=== PATIENT | female | born 1930 | race Caucasian/White ===

== ENCOUNTER → 2016-04-20 | Day surgery (SDC) | payer MEDICARE, OTHER ==
[~2016-04-20] MED LIST: ACETAMINOPHEN PO; ALPRAZOLAM; ALPRAZOLAM0.5 MG PO; AMILORIDE PO; AMITRIPTYLINE H50 MG PO; AMITRYPTYLINE; AMLODIPINE BES2.5 MG PO; AMLODIPINE BESYL5 MG PO; ASPIRIN; ASPIRIN81 M2 PO; ATENOLOL; ATENOLOL50 MG PO; AZOR 5-40 MG1 UDTAB PO; BENTYL20 M1 PO; BENTYL20 MG PO; CATAPRES-TTS-20.2 M1 PO; CLONIDINE; CLONIDINE HCL0.1 MG PO; COREG12.5 MG PO; COREG6.25 M1 PO; COZAAR PO; COZAAR25 MG PO; DIOVAN HCT 160/1 TAB PO; EPIPEN0.3 MG/0.1 IM; FENTANYL1 EAC1 TD; FLOMAX0.4 M1 PO; FOLIC ACID1 MG PO; FUROSEMIDE40 MG; HYDROCHLOROTH12.5 M1 PO; KEFLEX500 M2 PO; KEFLEX500 MG PO; KEPPRA1000 MG PO; KLOR-CON PO; LEVOTHYROXINE100 MC1 PO; LIDODERM30 EA TOP; LOSARTAN POTAS100 MG PO; MICONAZOLE PV; MOBIC15 MG PO; MORPHINE IR PO; MORPHINE SULFAT15 MG PO; MORPHINE SULFAT30 M3 PO; MOTION RELIEF25 MG PO; MS CONTIN15 M1 PO; MS CONTIN30 M1 PO; NAMENDA5 MG PO; NYSTATIN-TRIAMC15 G1 TOP; PATIENT'S PHARMACY; PRILOSEC20 MG; PROTONIX PO; RAZADYNE4 M1 PO; SPIRONOLACTONE50 MG PO; SYNTHROID; SYNTHROID0.1 MG PO; SYNTHROID112 MCG PO; VICODIN 5/500 T1 TAB PO; ZOFRAN ODT4 MG/UDTAB PO; ZOLOFT50 MG PO; [UNRECOGNIZED DRUG - OTHER] PV
--- NOTE | ~2016-04-20 | OR ---
Unit #: [id number] #: [id number] Patient: ARLEEN MONTANEZ [id number] [address] [place], [place] [address] [id number] O MR#: [id number] NAME: ARLEEN MONTANEZ ROOM: Date of Procedure: 04/20/2016 Admission Date: 04/20/2016 Surgeon: Aden Liang M.D. : 1930 Attending Physician: Aden Liang M.D. Primary Care Physician: Juan King M.D. OPERATIVE REPORT PREOPERATIVE DIAGNOSES Neck pain, cervical radiculopathy, degenerative cervical disk disease with myelopathy. POSTOPERATIVE DIAGNOSES Neck pain, cervical radiculopathy, degenerative cervical disk disease with myelopathy. PROCEDURE PERFORMED Cervical epidural steroid injection with intravenous sedation and fluoroscopic guidance for needle localization. INDICATIONS FOR PROCEDURE The patient is an 85-year-old female with neck periscapular pain. She failed to settle with medical management alone. Workup did demonstrate significant facet disease. A trial was given of C5-6, C6-7, C3-4, C4-5 facet injections. She got some mild improvement with this, better with local, and normally maintained with the steroid. Plan is to trial of epidural steroid injection at this point as diagnostic and therapeutic modality to see if this works better for her symptom complex. DESCRIPTION OF PROCEDURE The patient was placed in a seated position. Standard monitors were applied. 1 mg Versed was given for sedation and anxiolysis, which was adequate. Vital signs remained stable. Sterile prep and drape then of the cervical area was performed. The skin then at the C6-7 level was localized with 1% lidocaine. An 18-gauge Buzzienttead needle was then advanced via hanging drop technique and fluoroscopic guidance in toward the epidural space. After confirming proper positioning with fluoroscopy and radiographic contrast, 80 mg Depo-Medrol and 2 mL of 0.25% bupivacaine were deposited. The patient tolerated the procedure otherwise well and was discharged to the recovery room in stable condition. Dictated by... Shannan Gordillo/matt TD: 04/21/2016 00:18 JOB #: [id number] Unit #: [id number] #: [id number] Patient: ARLEEN MONTANEZ OPERATIVE REPORT X Aden Liang MD X PROCEDURE OPERATIVE NOTE
== END | disposition home or self-care (01) ==
LOC: CCSC 10:15
DX: M50.00 Cervical disc disorder with myelopathy, unspecified cervical region (principal); M50.10 Cervical disc disorder with radiculopathy, unspecified cervical region; M47.22 Other spondylosis with radiculopathy, cervical region; I25.2 Old myocardial infarction; I25.10 Atherosclerotic heart disease of native coronary artery without angina pectoris; M19.90 Unspecified osteoarthritis, unspecified site
CPT/HCPCS: J1040; J2250

== ENCOUNTER → 2016-09-14 | Day surgery (SDC) | payer MEDICARE, OTHER ==
--- NOTE | ~2016-09-14 | OR ---
Unit #: [id number] #: [id number] Patient: ARLEEN MONTANEZ [id number] [address] [address] [id number] O MR#: [id number] NAME: ARLEEN MONTANEZ ROOM: Date of Procedure: 09/14/2016 Admission Date: 09/14/2016 Surgeon: Aden Liang M.D. : 1930 Attending Physician: Aden Liang M.D. Primary Care Physician: Danica Carrero M.D. OPERATIVE REPORT PREOPERATIVE DIAGNOSES Degenerative cervical disk disease, neck pain, cervical radiculopathy. POSTOPERATIVE DIAGNOSES Degenerative cervical disk disease, neck pain, cervical radiculopathy. PROCEDURE PERFORMED Cervical epidural steroid injection with intravenous sedation and fluoroscopic guidance for needle localization. INDICATIONS FOR PROCEDURE The patient is an 85-year-old female with neck, periscapular, upper extremity pain associated with known degenerative cervical disk and spine disease. Plan is for trial of epidural steroid injection. DESCRIPTION OF PROCEDURE The patient was placed in a seated position. Standard monitors were applied. 1 mg Versed was given for sedation and anxiolysis, which was adequate. Vital signs remained stable. Sterile prep and drape then of cervical area was performed. The skin then at the C5-C6 level was localized with 1% lidocaine. An 18-gauge Hustead needle was then advanced via hanging drop technique and fluoroscopic guidance in toward the epidural space. After confirming proper positioning with fluoroscopy and radiographic contrast, 80 mg of Depo-Medrol and 2 mL of 0.25% bupivacaine were deposited. The patient tolerated the procedure otherwise well and was discharged to the recovery room in stable condition. Dictated by... Shannan Gordillo/matt TD: 09/14/2016 13:19 JOB #: [id number] Unit #: [id number] #: [id number] Patient: ARLEEN MONTANEZ OPERATIVE REPORT Page 1 of 1 X Aden Liang MD X PROCEDURE OPERATIVE NOTE
== END | disposition home or self-care (01) ==
LOC: CCSC 10:37
DX: M50.10 Cervical disc disorder with radiculopathy, unspecified cervical region (principal); I25.10 Atherosclerotic heart disease of native coronary artery without angina pectoris; I25.2 Old myocardial infarction; M19.90 Unspecified osteoarthritis, unspecified site; F41.9 Anxiety disorder, unspecified; F32.9 Major depressive disorder, single episode, unspecified
CPT/HCPCS: J1040; J2250

== ENCOUNTER → 2016-10-12 | Outpatient (CLI) | payer MEDICARE, OTHER | END | disposition home or self-care (01) | LOC: CECH 13:01 | DX: I25.10 Atherosclerotic heart disease of native coronary artery without angina pectoris (principal); I51.7 Cardiomegaly; I36.1 Nonrheumatic tricuspid (valve) insufficiency | CPT/HCPCS: 93306 ==

== ENCOUNTER 2016-11-01 11:06 | Inpatient (IN) | payer MEDICARE, OTHER ==
[~2016-11-01] VITALS: Ht 154.9 cm; Wt 72.8 kg
--- NOTE | ~2016-11-01 | CR72 ---
[facility] A Service of [facility] RADIOLOGY TEXT RESULTS PATIENT: ARLEEN MONTANEZ LOCATION: [facility] : 31 UNIT #: [id number] AGE: [address]: Lindsay Carcamo MD SEX: F ORDER DR: [id number] [facility] [address] [place], [place] [address] [id number] I MR#: [id number] Acc #: [id number] NAME: ARLEEN MONTANEZ : 1930 SEX: F STUDY DATE/TIME: 11/01/2016 13:10 UNIT: [address] ROOM: [facility] STUDY DESCRIPTION: CR Chest Single View Portable Attending Physician: Lindsay Carcamo M.D. Ordering Physician: Nica Medrano M.D. Primary Care Physician: Danica Carrero M.D. MEDICAL IMAGING REPORT This report is preliminary unless electronic signature is present EXAM Portable chest x-ray, 11/01/2016. HISTORY Dyspnea. TECHNIQUE AP radiograph of the chest is presented. COMPARISON STUDIES 03/03/2015 FINDINGS Status post median sternotomy and CABG. Mild cardiac enlargement stable. Mild elevation, left hemidiaphragm stable. Lungs well inflated. There is mild vascular prominence suggesting some degree of underlying vascular congestion. Underlying chronic interstitial changes most pronounced at the lung bases. Superimposed increase in linear interstitial densities in the mid to lower lung zones bilaterally. Given some evidence of pulmonary vascular congestion, I would favor the interstitial changes reflect mild interstitial edema or interstitial pneumonitis superimposed on the more chronic changes. There is no dense airspace disease, pleural effusion or pneumothorax. No suspicious nodule. Dictated by... Chepe Collado M.D. THIS IS AN ELECTRONICALLY VERIFIED REPORT Chepe Collado M.D. at 11/02/2016 7:40 PM TIKIK/shamika [facility] A Service of [facility] RADIOLOGY TEXT RESULTS PATIENT: ARLEEN MONTANEZ LOCATION: [facility] : 31 UNIT #: [id number] AGE: [address]: Lindsay Carcamo MD SEX: F ORDER DR: TD: 11/01/2016 23:19 JOB #: [id number] MEDICAL IMAGING REPORT Page 1 of 1 COPY
--- NOTE | ~2016-11-01 | HP ---
Unit #: [id number] #: [id number] Patient: ARLEEN MONTANEZ [id number] [address] [place], [place] [address] [id number] E MR#: [id number] NAME: ARLEEN MONTANEZ ROOM: Age: 85 Sex: F Admission Date: 11/01/2016 : 1930 Attending Physician: Nica Medrano M.D. Primary Care Physician: Danica Carrero M.D. HISTORY AND PHYSICAL REASON FOR ADMISSION Acute hypoxic respiratory failure, heart failure exacerbation, hypertensive urgency. HISTORY OF PRESENT ILLNESS Patient is a pleasant 85-year-old female, underlying history of moderate to severe dementia, depression, anxiety, hypothyroidism, chronic pain syndrome, who presented to the ER with complaints of increased dyspnea over the past several days marked with exertion, mild chest discomfort. She also stated that she had had her blood pressure checked while at home, was noted to be mildly elevated and subsequently presented to the hospital for further evaluation. While here her initial blood pressure was noted to be 212/80 and thus she is being admitted for the same. On initial EKG it does show normal sinus, no acute process was noted. Initial chest x-ray, although official report not available to me, does show stable cardiac enlargement and vascular congestion and/or edema; however, no acute infiltrate which was noted. Initial laboratory studies were also performed in the emergency room which did show a BNP of 196. Cardiac enzyme sets x2 have been unremarkable and negative. A UA was performed and normal as well. BMP showed a sodium of 132, LFTs normal, creatinine 0.6 and normal. PAST MEDICAL HISTORY 1. Hypothyroidism. 2. Dementia. 3. Chronic back pain. 4. Hyperlipidemia. 5. Peripheral vascular disease. 6. History of MGUS. 7. Depression. 8. Anxiety. 9. Lymphedema. 10. Chronic hyponatremia. 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 12. Diastolic dysfunction history. 13. Prior history of myocardial infarction. PAST SURGICAL HISTORY 1. Carotid endarterectomy. 2. Cataract. 3. Hysterectomy. Unit #: [id number] #: [id number] Patient: ARLEEN MONTANEZ 4. EGD/colonoscopy history. 5. CABG x3. SOCIAL HISTORY Resides at home, no alcohol, no tobacco, no illicit drug use. FAMILY HISTORY Reviewed and noncontributory/nonpertinent. ALLERGIES Although numerous are listed, two primary allergies are only sulfa and codeine. The remaining of her medications, per patient, do not work. REVIEW OF SYSTEMS Please see HPI. 12 point otherwise negative except for those positive noted in the HPI. Patient herself is a very poor historian. PHYSICAL EXAMINATION VITAL SIGNS: Temperature 97.8, pulse 77, respiratory rate 18, blood pressure 212/80 on admission, O2 sats low 90s on room air. GENERAL: Patient is a female in no apparent distress. She is alert. She is not oriented to time, place or person. HEAD EXAM: Atraumatic/normocephalic. NECK EXAM: Supple. Trachea midline. CVS: S1, S2 are audible. No murmur heard. RESPIRATORY: Prolonged expiration is noted. Some scattered rhonchi are noted. GI/ABDOMEN: Nontender, nondistended. LOWER EXTREMITIES: Have no evidence of any lower extremity edema. NEUROLOGICAL EXAM: Patient is A and O x1. She knows herself. She appears to be slightly confused but is easily redirectable. She is cooperative and mood and affect do appear to be normal. DIAGNOSTIC STUDIES LABORATORY: Initial laboratory studies please see above. INITIAL ASSESSMENT 1. Accelerated hypertension. 2. Mild heart failure exacerbation, likely diastolic dysfunction. 3. Acute hypoxic respiratory failure, likely multifactorial secondary to underlying heart failure exacerbation. 4. Dementia. 5. Hypothyroidism. 6. History of syndrome of inappropriate antidiuretic hormone 7. Hypertension. 8. Hyperlipidemia. 9. Depression. 10. Anxiety. 11. Monoclonal gammopathy of undetermined significance. PLAN 1. Admission telemetry floor. 2. Cardiac consult. 3. 2D echocardiogram. 4. Routine laboratory studies. 5. Blood cultures will be ascertained. 6. Blood pressure management will be initiated. 7. Home medications will be reviewed. Unit #: [id number] #: [id number] Patient: ARLEEN MONTANEZ 8. Currently med rec is pending. 9. PT/OT evaluation prior to discharge. Plans have been reviewed with patient. She desires per previous chart review to be a DNR. She will discuss amongst family if she wishes to continue current status. Dictated by Shannan Fox/ludin TD: 11/01/2016 18:08 JOB #: [id number] HISTORY AND PHYSICAL Page 1 of 1 X Lindsay Carcamo MD HISTORY AND PHYSICAL
--- NOTE | ~2016-11-01 | EKG ---
PATIENT: ARLEEN MONTANEZ UNIT #: [id number] Ventricular Rate: 79 BPM Atrial Rate: 79 BPM P-R Interval: 138 ms QRS Duration: 82 ms Q-T Interval: 410 ms QTC Calculation(Bezet): 470 ms P [place]: 52 degrees Calculated R [place]: 21 degrees Calculated T [place]: 31 degrees Diagnosis Line: Normal sinus rhythm Diagnosis Line: Possible Left atrial enlargement Diagnosis Line: Nonspecific T wave abnormality Diagnosis Line: Prolonged QT Diagnosis Line: Abnormal ECG Diagnosis Line: When compared with ECG of 23-NOV-2014 06:49, Diagnosis Line: No significant change was found Diagnosis Line: Confirmed by GEETHA FUNEZ MD ([id number]) on Diagnosis Line: 11/03/2016 10:50:16 AM INTERPRETING MD: ARMIN LOGAN
--- NOTE | ~2016-11-01 | EKG ---
PATIENT: ARLEEN MONTANEZ UNIT #: [id number] Ventricular Rate: 77 BPM Atrial Rate: 77 BPM P-R Interval: 148 ms QRS Duration: 84 ms Q-T Interval: 408 ms QTC Calculation(Bezet): 461 ms P [place]: 61 degrees Calculated R [place]: 42 degrees Calculated T [place]: 16 degrees Diagnosis Line: Normal sinus rhythm Diagnosis Line: Nonspecific T wave abnormality Diagnosis Line: Borderline ECG Diagnosis Line: When compared with ECG of 01-NOV-2016 12:56, Diagnosis Line: (unconfirmed) Diagnosis Line: No significant change was found Diagnosis Line: Confirmed by BRIAN WILSON MD ([id number]) on 11/08/2016 Diagnosis Line: 7:28:14 AM INTERPRETING MD: KATIE LOGAN
--- NOTE | ~2016-11-01 | DS ---
Unit #: [id number] #: [id number] Patient: ARLEEN MONTANEZ [id number] [address] [place], [place] [address] [id number] I MR#: [id number] NAME: ARLEEN MONTANEZ ROOM: 311 Age: 85 Sex: F Admission Date: 11/01/2016 : 1930 Discharge Date: 11/02/2016 Attending Physician: Lindsay Carcamo M.D. Primary Care Physician: Danica Carrero M.D. DISCHARGE SUMMARY Date of pending discharge, 11/12/2016. REASON FOR ADMISSION Accelerated hypertension and chest pain. HISTORY OF PRESENT ILLNESS/HOSPITAL COURSE Please refer to H and P for complete details. Consultation was placed to Dr. Overton and associates. The patient's blood pressure gradually started to improve. Cozaar dosage was increased from 25 mg daily to p.o. b.i.d. She was given additional hydralazine IV as her current systolic is currently between 160 to 170. She will be given her routine medications. Once her systolic blood pressure is less than 150, the patient will be discharged home. She was instructed to follow up with Dr. Samantha Overton on December 20 at 12:45 p.m. She will also follow up with primary care physician in approximately 7 to 10 days. At the present time, she currently denies any symptoms of chest pain. She has been removed from O2 via nasal cannula and her current O2 saturations on room air are stable. FINAL DISCHARGE DIAGNOSES 1. Accelerated hypertension. 2. Acute hypoxic respiratory failure likely secondary to anxiety. 3. Chest pain, acute coronary syndrome ruled out. 4. Chronic pain syndrome. 5. Hypertension history. 6. Hypothyroidism. 7. Generalized anxiety disorder. DISCHARGE MEDICATIONS Synthroid 112 mcg p.o. daily, Klor-Con 20 mg p.o. daily, MS Contin 60 mg p.o. q.a.m. and 30 mg p.o. at bedtime, MS-IR 15 mg p.o. b.i.d., aspirin 81 mg daily, Cozaar 25 mg p.o. b.i.d., Lasix 40 mg p.o. q.a.m., Lasix 20 mg p.o. every afternoon, Coreg 6.25 mg p.o. b.i.d., Zoloft 50 mg p.o. daily, and Tylenol 650 mg p.o. q.6h p.r.n. DISCHARGE CONDITION Stable. DISCHARGE DISPOSITION Home. FOLLOWUP Follow up with PCP in 7 to 10 days. Unit #: [id number] #: [id number] Patient: ARLEEN MONTANEZ Dictated by... Shannan Fox/matt TD: 11/06/2016 06:42 JOB #: [id number] DISCHARGE SUMMARY Page 1 of 1 X Lindsay Carcamo MD X DISCHARGE SUMMARY
--- NOTE | ~2016-11-01 | CO ---
Unit #: [id number] #: [id number] Patient: ARLEEN PRAJAPATI [id number] [address] [place], [place] [address] [id number] I MR#: [id number] NAME: ARLEEN PRAJAPATI ROOM: 311 Age: 85 Sex: F Admission Date: 11/01/2016 : 1930 Attending Physician: Lindsay Carcamo M.D. Primary Care Physician: Danica Carrero M.D. Consultation Date: 11/02/2016 CONSULTATION REPORT PRIMARY CARE DOCTOR Dr. Danica Carrero. REASON FOR CONSULTATION Poorly controlled blood pressure and dyspnea. HISTORY OF PRESENT ILLNESS This is an 85-year-old white female, who has known history of coronary artery disease, had a coronary bypass graft back in 2014; has chronic lymphedema; hypertension; hyperlipidemia; carotid artery disease, had bilateral carotid endarterectomy; hypothyroidism; chronic back pain. She came to the emergency room, and was sent by Dr. Carrero with elevated blood pressure and shortness of breath. According to the patient, she had not felt well for three or four days prior to going to see Dr. Carrero. She says she had been feeling just tired and weak and a lot more short of breath with exertion. She said she took her blood pressure at home in the last 2 or 3 days and her blood pressure was a little higher than usual. She states she has been compliant with her medication and she does not think she drinks too much fluids; however, she was saying she was overdoing on her salt intake. The patient says she has been having some substernal chest tightness, periodically, and it only lasts a few seconds. She said it is mostly when she is up doing something or when her blood pressure is high. She denies any radiation of the discomfort up into her neck, bilateral jaws, shoulders, arms, or elbow. She denies any palpitation. She does say they have been working her up for some chronic dizziness. She has had several testing done on that problem including some type of inner ear test, which was negative. They were still not sure of that cause. The patient denies having any fever or chills. She does have a dry occasional cough, which is not new. In the emergency room, the patient's blood pressure was 212/80, heart rate 77, respirations 18, temperature 97.8, and O2 saturations 92% on room air. Initial labs, her creatinine was 0.7, potassium 3.9 with a sodium 134, and magnesium 2.1. BNP 196. Initial cardiac enzymes are negative. WBC is 12.6 with hemoglobin of 13. Her EKG showed normal sinus rhythm, nothing acute. The patient was given sublingual nitroglycerin, and given an aspirin 325, also given a dose of IV Lopressor 5 mg, and a dose of IV hydralazine. The patient's chest x-ray did show some mild vascular congestion. PAST MEDICAL HISTORY 1. Hypertension. Unit #: [id number] #: [id number] Patient: ARLEEN PRAJAPATI 2. Hyperlipidemia. 3. Bilateral carotid endarterectomies and still has some blockages, she follows Dr. Almeida. 4. History of subclavian stenosis. 5. Chronic back pain and cervical disk disease, she follows with Pain Management, Dr. Liang, and has epidural steroid injections. 6. Hypothyroidism. 7. Depression and anxiety. 8. Chronic hyponatremia, probable SIADH. 9. History of chronic diastolic congestive heart failure. 10. History of coronary artery bypass graft in 03/2014. 11. Chronic lymphedema. 12. History of monoclonal gammopathy, undetermined significance. 13. A 2D echo from 02/2014 shows LVEF of 50% to 55% with trace mitral regurgitation, trace tricuspid regurgitation with impaired LV relaxation. 14. Nonsmoker. PAST SURGICAL HISTORY 1. Bilateral carotid endarterectomies. 2. Coronary artery bypass graft in 2014. 3. Hysterectomy. 4. Cholecystectomy. 5. Tonsillectomy. 6. EGD and colonoscopy, which showed nothing significant. HOME MEDICATIONS 1. Mobic 15 mg p.o. daily. 2. Zoloft 50 mg p.o. daily. 3. Klor-Con 20 mEq p.o. daily. 4. Aspirin 81 mg daily. 5. Furosemide 40 mg in the morning and 20 mg at noon. 6. Carvedilol 6.25 mg one tablet p.o. twice daily. 7. Synthroid 112 mcg p.o. daily. 8. Cozaar 25 mg p.o. daily. 9. Morphine 15 mg p.o. twice daily. 10. MS Contin 30 mg p.o. twice daily. ALLERGIES 1. Sulfonamides. 2. Codeine. SOCIAL HISTORY The patient lives with her spouse. The patient has to use a cane and walker and going any long distances has to use a wheelchair. Quit smoking back in 1968 and only smoked for a couple of years. No alcohol, tobacco, or other listed drug abuse. FAMILY HISTORY She was raised by her grandparents. She is not sure of her parents or siblings' history. REVIEW OF SYSTEMS See details in HPI. PHYSICAL EXAMINATION GENERAL: Ms. Prajapati is an 85-year-old white female, in no acute respiratory distress. She is awake, alert, and oriented. VITAL SIGNS: Blood pressure has came down as low as 137/58, now 151/57; Unit #: [id number] #: [id number] Patient: ARLEEN PRAJAPATI heart rate 78; respirations 18; temperature 98.2; and O2 saturations 96% on room air. NECK: Trachea midline. No thyromegaly or lymphadenopathy. Normal carotid upstrokes. No jugular venous distention. HEART: S1 and S2. Regular rate and rhythm. No clicks, murmurs, or rubs. LUNGS: Diminished, otherwise clear. ABDOMEN: Soft and nontender. Positive bowel sounds present. EXTREMITIES: Pedal pulses are weak, but palpable. No pedal edema. DIAGNOSTIC STUDIES 1. Glucose is 138, BUN 16, creatinine 0.7, EGFR 79.6, sodium 134, potassium 3.9, chloride 97, CO2 of 28, calcium is 8.9, and magnesium is 2.1. Total protein 8.0, albumin is 4.3, bilirubin total 0.4, AST is 24, ALT 17, and alkaline phosphatase is 104. BNP is 196. WBC 12.6, hemoglobin 13.1, hematocrit 40.6, and platelets is 261. Initial cardiac enzymes; CK-MB is 1.7. Troponin is less than 0.05. CK-MB is 2.2. Troponin is less than 0.05. Urinalysis; 0.2 urobilinogen, otherwise unremarkable. 2. INR is 1.0. 3. Chest x-ray shows no suspicious nodules; status post CABG; lungs are well inflated with some degree of underlying vascular congestion, mild. 4. EKG shows normal sinus rhythm with ventricular rate of 77 beats per minute, slightly prolonged Q-waves, nonspecific, but looking back is similar to previous EKGs. IMPRESSION 1. Poorly controlled hypertension. 2. Chest pain, atypical. 3. Shortness of breath, mild fluid overload, pulmonary edema, likely secondary to poorly controlled hypertension. 4. Hyperlipidemia. 5. Coronary artery disease, previous CABG. 6. History of chronic hyponatremia, probable syndrome of inappropriate antidiuretic hormone secretion. 7. Hypothyroidism. 8. Depression and anxiety. 9. Chronic back pain. 10. Cervical disk disease. 11. Chronic diastolic congestive heart failure. 12. Last echo on outpatient, 10/12/2016, shows LVEF of 55% to 60%, left ventricular hypertrophy, grade 3 diastolic dysfunction, [id number] tricuspid regurgitation with elevated RVSP at 38 mmHg. 13. History of monoclonal gammopathy, undetermined significance. 14. Chronic lymphedema. 15. Dizziness. 16. Nonsmoker. PLAN 1. Cardiology consult to assist with evaluation and management. 2. Cardiac enzymes are negative. EKG does not show anything acute. The patient's dyspnea and chest pain are most likely secondary to poorly controlled hypertension. Her blood pressure is fluctuating. We will check orthostatic vitals. We will adjust her medications after review of her orthostatics. 3. We will continue the patient on increased losartan to 25 mg p.o. b.i.d. and keep the patient on her beta-jessica as well. Continue on the carvedilol in addition to her Lasix as scheduled. 4. We will check her O2 saturation level. If it is less than 92%, we Unit #: [id number] #: [id number] Patient: ARLEEN PRAJAPATI will discontinue the O2, currently it is stable. 5. We will try to obtain records from [facility], where she had her bypass surgery. 6. Further recommendations pending per Dr. Overton. Thank you very much for allowing us to assist in the care. Dictated by... Sidney Dee/modl TD: 11/03/2016 10:33 JOB #: [id number] CC: [facility] Dr. Danica Carrero CONSULTATION REPORT Page 1 of 1 X Kathy Jarvis APRN CONSULTATION REPORT
[~2016-11-01 11:06] MED LIST changes: -COZAAR PO; -MORPHINE SULFAT15 MG PO; -MOTION RELIEF25 MG PO; -PATIENT'S PHARMACY
[2016-11-01 13:15] LABS: BASOPHIL# 0.1 X10e3 (0-0.3); BASOPHIL% 1.1 % (0-2.5); EOSINOPHIL# 0.3 X10e3 (0-0.7); EOSINOPHIL% 2.5 % (0.0-7.0); HEMATOCRIT 44.3 % (35.0-45.0); HEMOGLOBIN 14.6 gm/dL (12.0-16.0); LYMPHOCYTE# 2.3 X10e3 (1.0-3.5); LYMPHOCYTE% 20.1 % (17.0-45.0); MEAN CELL VOLUME 83.4 FL (83-96); MEAN CORPUSCULAR HEMOGLOBIN 27.5 PG (28-34); MEAN PLATELET VOLUME 8.3 FL (6.5-11.5); MONOCYTE# 0.7 X10e3 (0-1.0); MONOCYTE% 6.4 % (3.0-12.0); NEUTROPHIL# 8.1 X10e3 (1.5-7.1); NEUTROPHIL% 69.9 % (40-75); PLATELET COUNT 282 X10e3 (140-420); RED BLOOD COUNT 5.31 X10e (3.90-5.30); RED CELL DISTRIBUTION WIDTH 15.2 % (11.0-15.5); WHITE BLOOD COUNT 11.6 X10e3 (4.0-10.5)
[2016-11-01 13:17] LABS: URINE SOURCE CLEAN CATCH
[2016-11-01 13:17] LABS: DIFF IND NO
[2016-11-01 13:23] LABS: URINE APPEARANCE CLEAR; URINE BILIRUBIN NEG (NEG); URINE BLOOD NEG (NEG); URINE COLOR YELLOW; URINE GLUCOSE NEG (NEG); URINE KETONE NEG (NEG); URINE LEUKOCYTE ESTERASE NEG (NEG); URINE NITRATE NEG (NEG); URINE PROTEIN NEG (NEG); URINE SPECIFIC GRAVITY 1.005 (1.003-1.035); URINE UROBILINOGEN 0.2 MG/DL (NEG)
[2016-11-01 13:25] LABS: CULTURE INDICATED? NO
[2016-11-01 13:29] LABS: PARTIAL THROMBOPLASTIN TIME 27.1 SECONDS (23.5-31.3)
[2016-11-01 13:30] LABS: POC - CKMB 2.2 ng/mL (0.0-7.9); POC - TROPONIN <0.05 ng/mL (<=0.05)
[2016-11-01 13:36] LABS: ALBUMIN SERUM 4.3 g/dL (3.5-5.0); BILIRUBIN, DIRECT 0.1 mg/dL (0.0-0.2); BILIRUBIN,INDIRECT 0.3 mg/dL (0.0-0.9); BILIRUBIN,TOTAL 0.4 mg/dL (0.2-2.0); BUN/CREATININE RATIO 23.33; CALCIUM SERUM 9.1 mg/dL (8.4-10.2); CREATININE SERUM 0.6 mg/dL (0.6-1.4); GLOM FILT RATE Estimated 83.7 mL/min (>60); POTASSIUM 4.1 mmol/L (3.5-5.1)
[2016-11-01 15:05] LABS: POC - CKMB 1.7 ng/mL (0.0-7.9); POC - TROPONIN <0.05 ng/mL (<=0.05)
[2016-11-01] MEDS ORDERED: COZAAR PO (16:43)
[2016-11-01] MEDS ORDERED: MORPHINE SULFAT15 MG PO (16:43)
[2016-11-01] MEDS ORDERED: MS CONTIN30 M1 PO (16:44)
[2016-11-01] MEDS ORDERED: PATIENT'S PHARMACY (16:45)
[2016-11-01 21:21] LABS: CK TOTAL 57 IU/L (26-140)
[2016-11-02 03:14] LABS: BASOPHIL# 0.2 X10e3 (0-0.3); BASOPHIL% 1.4 % (0-2.5); EOSINOPHIL# 0.4 X10e3 (0-0.7); EOSINOPHIL% 2.9 % (0.0-7.0); HEMATOCRIT 40.6 % (35.0-45.0); HEMOGLOBIN 13.1 gm/dL (12.0-16.0); LYMPHOCYTE# 2.8 X10e3 (1.0-3.5); LYMPHOCYTE% 21.9 % (17.0-45.0); MEAN CORPUSCULAR HEMOGLOBIN 27.2 PG (28-34); MEAN CORPUSCULAR HGB CONC 32.3 g/dL (30-36); MONOCYTE% 7.9 % (3.0-12.0); NEUTROPHIL# 8.3 X10e3 (1.5-7.1); NEUTROPHIL% 65.9 % (40-75); PLATELET COUNT 261 X10e3 (140-420); RED BLOOD COUNT 4.84 X10e (3.90-5.30); RED CELL DISTRIBUTION WIDTH 15.4 % (11.0-15.5); WHITE BLOOD COUNT 12.6 X10e3 (4.0-10.5)
[2016-11-02 03:15] LABS: DIFF IND NO
[2016-11-02 03:39] LABS: BUN/CREATININE RATIO 22.85; CALCIUM SERUM 8.9 mg/dL (8.4-10.2); CREATININE SERUM 0.7 mg/dL (0.6-1.4); GLOM FILT RATE Estimated 79.6 mL/min (>60); MAGNESIUM 2.1 mg/dL (1.6-3.0); POTASSIUM 3.9 mmol/L (3.5-5.1)
[2016-11-02 04:05] LABS: %MB 4.2 % (0.0-4.0); MB 3.1 ng/ml
[2016-11-02 08:41] LABS: CHOLESTEROL 163 mg/dL (0-200); HDL CHOLESTEROL 41 mg/dL (35-95); LDL CHOLESTEROL 106 mg/dL ([, -130]); LDL/HDL RATIO 3 RATIO (0-4); TRIGLYCERIDES 82 mg/dL (10-160)
[2016-11-02] MEDS ORDERED: MOTION RELIEF25 MG PO (11:20)
[2016-11-02] MEDS ORDERED: ACETAMINOPHEN PO (11:22)
== END 2016-11-02 17:33 | disposition home or self-care (01) | DRG 189 ==
LOC: CED 11:06 → CEDOF 17:50 → CED 18:15 → CEDOF 18:15 → C3A PCU 22:31 → CEDOF 22:31 → C3A PCU 11-02 17:33
PROVIDERS: Emergency Medicine; Family Medicine
DX: J96.01 Acute respiratory failure with hypoxia (principal); E22.2 Syndrome of inappropriate secretion of antidiuretic hormone; I11.0 Hypertensive heart disease with heart failure; I50.32 Chronic diastolic (congestive) heart failure; F03.90 Unspecified dementia, unspecified severity, without behavioral disturbance, psychotic disturbance, mood disturbance, and anxiety; D47.2 Monoclonal gammopathy; I16.0 Hypertensive urgency; I25.10 Atherosclerotic heart disease of native coronary artery without angina pectoris; Z95.1 Presence of aortocoronary bypass graft; E03.9 Hypothyroidism, unspecified; E78.5 Hyperlipidemia, unspecified; M54.9 Dorsalgia, unspecified; M50.30 Other cervical disc degeneration, unspecified cervical region; F32.9 Major depressive disorder, single episode, unspecified; F41.1 Generalized anxiety disorder; Z90.49 Acquired absence of other specified parts of digestive tract; Z90.710 Acquired absence of both cervix and uterus; Z79.82 Long term (current) use of aspirin; Z88.5 Allergy status to narcotic agent; Z88.2 Allergy status to sulfonamides; Z87.891 Personal history of nicotine dependence; Z98.42 Cataract extraction status, left eye; Z98.41 Cataract extraction status, right eye; Z96.1 Presence of intraocular lens
CPT/HCPCS: 36415; 71010; 80048; 80061; 80076; 81003; 82550; 82553; 83036; 83735; 83880; 84443; 84484; 85025; 85610; 85730; 93005; 94760; 96374; 97165; 99285; C9113; G8987-GO; G8988-GO; G8989-GO; J0360; J3490